=== PATIENT | female | born 1965 | race American Indian/Alaskan Native ===

== ENCOUNTER 2016-08-17 07:24 | Emergency (ER) | payer SELFPAY ==
[2016-08-17 07:57] VITALS: BP 134/90
[2016-08-17 08:29] LABS: Eosinophils % (Auto) 1.4 % (0.0-4.3); Hematocrit 43.1 % (30.3-42.9); Hemoglobin 14.4 gm/dl (10.1-14.3); Mean Corpuscular HGB Conc 34 % (30-34); Mean Corpuscular Hemoglobin 30 pg (28-32); Mean Corpuscular Volume 88 fl (79-97); Platelet Count 301 K/mm3 (140-440); Red Cell Distribution Width 13.3 % (13.2-15.2); White Blood Count 7.2 K/mm3 (4.5-11.0)
[2016-08-17 09:13] LABS: Alanine Aminotransferase 9 units/L (7-56); Albumin 3.8 g/dL (3.9-5); Alkaline Phosphatase 169 units/L (35-129); Anion Gap 15 mmol/L; BUN/Creatinine Ratio 15.71; Bilirubin,Total 0.5 mg/dL (0.1-1.2); Blood Urea Nitrogen 11 mg/dL (7-17); Calcium 9.8 mg/dL (8.4-10.2); Carbon Dioxide 27 mmol/L (22-30); Chloride 96.1 mmol/L (98-107); Glucose 321 mg/dL (65-100); Lipase 34 units/L (13-60); Potassium 4.3 mmol/L (3.6-5.0); Sodium 134 mmol/L (137-145); Total Protein 7.8 g/dL (6.3-8.2)
[2016-08-17 10:43] LABS: Bilirubin,Urine NEG (Negative); Blood,Urine NEG (Negative); Ketones,Urine NEG (Negative); Leukocyte Esterase,Urine NEG (Negative); Nitrite,Urine NEG (Negative); Protein,Urine <15 mg/dL mg/dL (Negative); Urobilinogen,Urine < 2.0 mg/dL (<2.0)
== END 2016-08-17 21:01 | disposition left against medical advice (07) ==
LOC: ED 07:24
DX: R10.2 Pelvic and perineal pain (principal); Z53.21 Procedure and treatment not carried out due to patient leaving prior to being seen by health care provider
CPT/HCPCS: 36415; 80053; 81001; 83690; 85025

== ENCOUNTER 2018-09-13 12:32 | Emergency (ER) | payer SELFPAY ==
[2018-09-13 12:47] VITALS: BP 158/93
--- NOTE | 2018-09-13 12:47 | Emergency Department Report ---
Blank Doc - Documentation Documentation: Was moving cases of water and then back started hurting 2 days later.
--- NOTE | 2018-09-13 13:11 | Emergency Department Report ---
HPI - General Chief Complaint: Back Pain/Injury Time Seen by Provider: 09/13/18 12:45 - HPI HPI: 52-year-old -[place] female presents to the emergency department with complaint of some left-sided mid back pain has been going on for the past 5 or 6 days since the patient lifted some heavy crates of water and soda while at work. She has not taken anything for her symptoms prior to presentation. She denies any problems with bowel or bladder, numbness or paresthesias, or any neurological deficits. She has a past medical history of hypertension and diabetes. She does not have a primary care physician. No recent travel or sick contacts at home. ED Past Medical Hx - Past Medical History Previous Medical History?: Yes Hx Hypertension: Yes Hx Diabetes: Yes Hx Arthritis: Yes Additional medical history: diverticulosis, high cholesterol. bone spurs - Surgical History Past Surgical History?: Yes Additional Surgical History: c section x4, hysterectomy. bilateral carpal tunnel - Social History Smoking Status: Never Smoker Substance Use Type: None - Medications Home Medications: Home Medications Medication Instructions Recorded Confirmed Last Taken Type oxyCODONE /ACETAMINOPHEN [Percocet 1 tab PO Q6HR PRN #15 tablet 06/30/13 Unknown Rx 5/325 mg] Naproxen [Naprosyn TAB] 500 mg PO BID #14 tablet 01/13/14 Unknown Rx HYDROcodone/APAP 5-325 [[place] 1 each PO Q6HR PRN #20 tablet 03/19/17 Unknown Rx 5/325] Ondansetron [Zofran Odt] 4 mg PO Q8HR PRN #20 tab.rapdis 03/19/17 Unknown Rx Acetaminophen/Codeine [Tylenol 1 tab PO Q6H PRN #12 tab 04/30/18 Unknown Rx /Codeine # 3 tab] Cyclobenzaprine [Flexeril] 10 mg PO TID PRN #12 tablet 09/13/18 Unknown Rx Ibuprofen [Motrin 800 MG tab] 800 mg PO Q8HR PRN #20 tablet 09/13/18 Unknown Rx ED Review of Systems ROS: Stated complaint: BACK PAIN Other details as noted in HPI Comment: All other systems reviewed and negative Constitutional: denies: chills, fever Eyes: denies: eye pain, vision change ENT: denies: ear pain, throat pain Respiratory: denies: cough, shortness of breath Cardiovascular: denies: chest pain, palpitations Gastrointestinal: denies: abdominal pain, vomiting Genitourinary: denies: dysuria, discharge Musculoskeletal: back pain. denies: arthralgia Skin: denies: rash, lesions Neurological: denies: headache, weakness Physical Exam - Physical Exam Vital Signs: Vital Signs 09/13/18 12:45 Temperature 98.1 F Pulse Rate 71 Respiratory 16 Rate Blood Pressure 158/93 [Left] O2 Sat by Pulse 98 Oximetry Physical Exam: GENERAL: The patient is well-developed well-nourished. HENT: Normocephalic. Atraumatic. Patient has moist mucous membranes. EYES: Extraocular motions are intact. NECK: Supple. Trachea is midline. CHEST/LUNGS: Clear to auscultation. There is no respiratory distress noted. HEART/CARDIOVASCULAR: Regular. There is no tachycardia. There is no murmur. ABDOMEN: There is no abdominal distention. SKIN: Skin is warm and dry. NEURO: The patient is awake, alert, and oriented. The patient is cooperative. The patient has no focal neurologic deficits. The patient has normal speech. MUSCULOSKELETAL: There is no tenderness or deformity. There is no limitation range of motion. There is no evidence of acute injury. BACK: No midline thoracic or lumbar tenderness to palpation, step-off or deformity. There is some reproducible left lateral lower thoracic tenderness to palpation. ED Course Vital Signs 09/13/18 12:45 Temperature 98.1 F Pulse Rate 71 Respiratory 16 Rate Blood Pressure 158/93 [Left] O2 Sat by Pulse 98 Oximetry ED Medical Decision Making - Medical Decision Making The patient has been dealing with 5 or 6 days of some left mid lateral back pain after lifting some heavy objects at work. She has no problems with bowel or bladder, numbness or paresthesias or any neurological deficits. There is no midline thoracic or lumbar tenderness to palpation, step-off or deformity. For these reasons, I did not feel that any imaging of the spine was necessary at this time. The patient was seen ambulatory in the emergency department and both appears and feels stable. She'll be discharged home with anti-inflammatories and a prescription for a muscle relaxer. She has been given referrals for both primary care and orthopedist. She will return to the ER with any worsening of her symptoms or any acute distress. - Differential Diagnosis muscle strain, sprain, muscle spasm, disc disease Critical Care Time: No Critical care attestation.: If time is entered above; I have spent that time in minutes in the direct care of this critically ill patient, excluding procedure time. ED Disposition Clinical Impression: Back pain Qualifiers: Back pain location: thoracic back pain Chronicity: acute Back pain laterality: left Qualified Code(s): M54.6 - Pain in thoracic spine Disposition: - TO HOME OR SELFCARE Is pt being admited?: No Condition: Stable Instructions: Back Pain (ED) Additional Instructions: Please follow up with a primary care physician in the next few days. I am also giving him a referral for a local orthopedist, Dr. Sarkar. Return to the emergency Department with any worsening of your symptoms or any acute distress. You have been prescribed a medication that is sedating and therefore should not be taken prior to driving, working, and responsible for children and in no way should be mixed with alcohol of any quantity. Prescriptions: Cyclobenzaprine [Flexeril] 10 mg PO TID PRN #12 tablet PRN Reason: Muscle Spasm Ibuprofen [Motrin 800 MG tab] 800 mg PO Q8HR PRN #20 tablet PRN Reason: Pain Referrals: SAJI SARKAR MD [Staff Physician] - 2-3 Days LYN ZAVALA MD [Staff Physician] - 2-3 Days [facility] [Outside] - 2-3 Days Time of Disposition: 13:11
== END 2018-09-13 13:37 | disposition home or self-care (01) ==
LOC: ED 12:32
DX: M54.6 Pain in thoracic spine (principal); I10 Essential (primary) hypertension; E11.9 Type 2 diabetes mellitus without complications; M19.90 Unspecified osteoarthritis, unspecified site; E78.00 Pure hypercholesterolemia, unspecified; Z90.710 Acquired absence of both cervix and uterus; Z79.899 Other long term (current) drug therapy
CPT/HCPCS: 99282

== ENCOUNTER 2018-12-26 14:42 | Emergency (ER) | payer OTHER ==
--- NOTE | 2018-12-26 15:11 | Event Note ---
ED Screening Note ED Screening Note: cc r ankle pain after customer dropped ax on her foot on Sat ambulatory pmh dm htn diverticulosis gerd cardiomegaly hpld This initial assessment/diagnostic orders/clinical plan/treatment(s) is/are subject to change based on patients health status, clinical progression and re- assessment by fellow clinical providers in the ED. Further treatment and workup at subsequent clinical providers discretion. Patient/guardian urged not to elope from the ED as their condition may be serious if not clinically assessed and managed. Initial orders include: xray
[2018-12-26 15:12] VITALS: BP 145/89
[2018-12-26] MEDS ORDERED: IBUPROFEN PO ONE (15:51)
--- NOTE | 2018-12-26 15:51 | Emergency Department Report ---
ED Lower Extremity HPI - General Chief Complaint: Extremity Injury, Lower Stated Complaint: RT LEG WORK INJURY/PAIN Time Seen by Provider: 12/26/18 15:09 Source: patient Mode of arrival: Ambulatory Limitations: No Limitations - History of Present Illness Initial Comments: Mrs. Villanueva is a very pleasant 53-year-old female who presents with injury to her right leg ankle. On Saturday 6 days prior, a customer dropped a heavy ax on her right lower leg just above her ankle. Swelling has improved. How she has persistent pain in spite BC powder. She has intermittent numbness toward her toes. 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 She's been able to continue to work. However she stands for a prolonged period of time at work. Past medical history includes diabetes mellitus, hypertension, diverticulosis, GERD, dysplipidemia MD Complaint: leg injury -: Sudden, days(s) (6) Injury: Leg: Right Type of Injury: blunt Place: work Severity: mild Improves With: rest Worsens With: palpation Context: direct blow Associated Symptoms: numbness Treatments Prior to Arrival: other (BC powder) - Related Data Previous Rx's Medication Instructions Recorded Last Taken Type oxyCODONE /ACETAMINOPHEN [Percocet 1 tab PO Q6HR PRN #15 tablet 06/30/13 Unknown Rx 5/325 mg] Naproxen [Naprosyn TAB] 500 mg PO BID #14 tablet 01/13/14 Unknown Rx HYDROcodone/APAP 5-325 [[place] 1 each PO Q6HR PRN #20 tablet 03/19/17 Unknown Rx 5/325] Ondansetron [Zofran Odt] 4 mg PO Q8HR PRN #20 tab.rapdis 03/19/17 Unknown Rx Acetaminophen/Codeine [Tylenol 1 tab PO Q6H PRN #12 tab 04/30/18 Unknown Rx /Codeine # 3 tab] Cyclobenzaprine [Flexeril] 10 mg PO TID PRN #12 tablet 09/13/18 Unknown Rx Ibuprofen [Motrin 800 MG tab] 800 mg PO Q8HR PRN #20 tablet 09/13/18 Unknown Rx Ibuprofen [Motrin 800 MG tab] 800 mg PO TID 4 Days #12 tablet 12/26/18 Unknown Rx Allergies Allergy/AdvReac Type Severity Reaction Status Date / Time No Known Allergies Allergy Verified 02/18/14 15:55 ED Review of Systems ROS: Stated complaint: RT LEG WORK INJURY/PAIN Other details as noted in HPI Constitutional: denies: fever, malaise Skin: denies: rash, lesions Neurological: denies: numbness, paresthesias ED Past Medical Hx - Past Medical History Previous Medical History?: Yes Hx Hypertension: Yes Hx Diabetes: Yes Hx Arthritis: Yes Additional medical history: diverticulosis, high cholesterol. bone spurs - Surgical History Past Surgical History?: Yes Additional Surgical History: c section x4, hysterectomy. bilateral carpal tunnel - Social History Smoking Status: Never Smoker Substance Use Type: None - Medications Home Medications: Home Medications Medication Instructions Recorded Confirmed Last Taken Type oxyCODONE /ACETAMINOPHEN [Percocet 1 tab PO Q6HR PRN #15 tablet 06/30/13 Unknown Rx 5/325 mg] Naproxen [Naprosyn TAB] 500 mg PO BID #14 tablet 01/13/14 Unknown Rx HYDROcodone/APAP 5-325 [[place] 1 each PO Q6HR PRN #20 tablet 03/19/17 Unknown Rx 5/325] Ondansetron [Zofran Odt] 4 mg PO Q8HR PRN #20 tab.rapdis 03/19/17 Unknown Rx Acetaminophen/Codeine [Tylenol 1 tab PO Q6H PRN #12 tab 04/30/18 Unknown Rx /Codeine # 3 tab] Cyclobenzaprine [Flexeril] 10 mg PO TID PRN #12 tablet 09/13/18 Unknown Rx Ibuprofen [Motrin 800 MG tab] 800 mg PO Q8HR PRN #20 tablet 09/13/18 Unknown Rx Ibuprofen [Motrin 800 MG tab] 800 mg PO TID 4 Days #12 tablet 12/26/18 Unknown Rx ED Physical Exam - General Limitations: No Limitations General appearance: alert, in no apparent distress - Head Head exam: Present: atraumatic, normocephalic - Eye Eye exam: Absent: scleral icterus, conjunctival injection - ENT ENT exam: Present: mucous membranes moist - Neck Neck exam: Present: normal inspection, full ROM - Expanded Lower Extremity Exam Right Lower Leg exam: Present: normal inspection, full ROM, tenderness. Absent: swelling, abrasion, laceration, deformity, crepidus, dislocation, erythema, palpable cord, Manan's sign Ankle exam: Present: normal inspection, full ROM, tenderness. Absent: swelling, laceration, ecchymosis, deformity, dislocation, erythema ED Course Vital Signs 12/26/18 15:10 Temperature 97.8 F Pulse Rate 82 Respiratory 18 Rate Blood Pressure 145/89 O2 Sat by Pulse 99 Oximetry ED Lower Extremity MDM - Radiology Data Radiology results: image reviewed right ankle radiographs: No acute process according to my interpretation, no fracture no soft tissue swelling no subluxation - Medical Decision Making Right leg contusion: Camilo wrap applied to left ankle lower leg by my colleague under my supervision. Extremity neurologically intact after application. Prescribed ibuprofen and referred to orthopedic surgeon. Critical care attestation.: If time is entered above; I have spent that time in minutes in the direct care of this critically ill patient, excluding procedure time. ED Disposition Clinical Impression: Contusion of right leg Disposition: DC-01 TO HOME OR SELFCARE Is pt being admited?: No Does the pt Need Aspirin: No Condition: Stable Instructions: Contusion in Adults (ED) Prescriptions: Ibuprofen [Motrin 800 MG tab] 800 mg PO TID 4 Days #12 tablet Referrals: SAJI EDGE MD [Staff Physician] - 3-5 Days
--- NOTE | 2018-12-26 15:54 | XRay Report ---
RIGHT ANKLE 3 VIEWS INDICATION / CLINICAL INFORMATION: ankle foot pain. COMPARISON: None available. FINDINGS: No fracture, dislocation or right ankle effusion is present. Nonpostinflammatory calcaneal enthesophy pauly are seen at the attachment of the Achilles and plantar tendon aponeurosis. There is mild heteroto pic ossification within the distal Achilles and plantar tendon aponeurosis likely from remote partial tears. Signer Name: Oleg Gipson MD Signed: 12/26/2018 3:49 PM Workstation Name: [id number]
== END 2018-12-26 16:18 | disposition home or self-care (01) ==
LOC: ED 14:42
DX: S80.11XA Contusion of right lower leg, initial encounter (principal); I10 Essential (primary) hypertension; E11.9 Type 2 diabetes mellitus without complications; M19.90 Unspecified osteoarthritis, unspecified site; E78.00 Pure hypercholesterolemia, unspecified; Z90.710 Acquired absence of both cervix and uterus; Z98.890 Other specified postprocedural states; Z79.899 Other long term (current) drug therapy; W20.8XXA Other cause of strike by thrown, projected or falling object, initial encounter; Y93.89 Activity, other specified; Y92.512 Supermarket, store or market as the place of occurrence of the external cause; Y99.0 Civilian activity done for income or pay

== ENCOUNTER 2019-04-22 12:34 | Emergency (ER) | payer SELFPAY ==
[2019-04-22] MEDS ORDERED: dexAMETHasone 4 MG/ML VIAL IM ONE (13:33)
--- NOTE | 2019-04-22 13:33 | Emergency Department Report ---
ED Fall HPI - General Chief Complaint: Extremity Injury, Lower Stated Complaint: LT LEG/RT SIDE INJURY Time Seen by Provider: 04/22/19 13:20 Source: patient Mode of arrival: Ambulatory - History of Present Illness Initial Comments: 53 YO AA FEMALE TRIPPED OVER [employer] CHAIR AT WORK TODAY AND FELL. 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 Witnessed: yes, by family Place Fall Occurred: work Loss of Consciousness: none Prolonged Down Time?: no Symptoms Prior to Fall: none Severity: mild Context: tripped/slipped Associated Symptoms: denies - Related Data Previous Rx's Medication Instructions Recorded Last Taken Type Acetaminophen [Acetaminophen 8 650 mg PO Q8H PRN #25 tablet.er 04/22/19 Unknown Rx Hour] Cyclobenzaprine [Flexeril] 10 mg PO TID PRN #10 tablet 04/22/19 Unknown Rx Allergies Allergy/AdvReac Type Severity Reaction Status Date / Time No Known Allergies Allergy Verified 06/30/13 15:55 ED Review of Systems ROS: Stated complaint: LT LEG/RT SIDE INJURY Other details as noted in HPI Comment: All other systems reviewed and negative ED Past Medical Hx - Past Medical History Previous Medical History?: Yes Hx Hypertension: Yes Hx Diabetes: Yes Hx Arthritis: Yes Additional medical history: diverticulosis, high cholesterol. bone spurs - Surgical History Past Surgical History?: Yes Additional Surgical History: c section x4, hysterectomy. bilateral carpal tunnel - Family History Family history: no significant - Social History Smoking Status: Never Smoker Substance Use Type: None - Medications Home Medications: Home Medications Medication Instructions Recorded Confirmed Last Taken Type Acetaminophen [Acetaminophen 8 650 mg PO Q8H PRN #25 tablet.er 04/22/19 Unknown Rx Hour] Cyclobenzaprine [Flexeril] 10 mg PO TID PRN #10 tablet 04/22/19 Unknown Rx ED Physical Exam - General Limitations: No Limitations General appearance: alert, in no apparent distress - Head Head exam: Present: atraumatic, normocephalic - Eye Eye exam: Present: normal appearance - ENT ENT exam: Present: mucous membranes moist - Neck Neck exam: Present: normal inspection - Respiratory Respiratory exam: Present: normal lung sounds bilaterally. Absent: respiratory distress - Cardiovascular Cardiovascular Exam: Present: regular rate, normal rhythm. Absent: systolic murmur, diastolic murmur, rubs, gallop - GI/Abdominal GI/Abdominal exam: Present: soft, normal bowel sounds - Extremities Exam Extremities exam: Present: normal inspection - Back Exam Back exam: Present: normal inspection - Neurological Exam Neurological exam: Present: alert, oriented X3 - Psychiatric Psychiatric exam: Present: normal affect, normal mood - Skin Skin exam: Present: warm, dry, intact, normal color, other (ABRASION LEFT LOWER DAVIS). Absent: rash ED Course Vital Signs 04/22/19 13:10 Temperature 97.7 F Pulse Rate 71 Respiratory 18 Rate Blood Pressure 173/75 O2 Sat by Pulse 99 Oximetry ED Medical Decision Making - Medical Decision Making NO IMAGING NEEDED OJI ABRASION LLE LANDED ON R SIDE AMBULATORY--PROVIDER AMBULATED PT NEURO INTACT MEDICATED IN ER DC HOME WITH ORTHO FOLLOW UP Vital Signs 04/22/19 13:10 Temperature 97.7 F Pulse Rate 71 Respiratory 18 Rate Blood Pressure 173/75 O2 Sat by Pulse 99 Oximetry - Differential Diagnosis GLF MECHANICAL SOFT TISSUE Critical care attestation.: If time is entered above; I have spent that time in minutes in the direct care of this critically ill patient, excluding procedure time. ED Disposition Clinical Impression: Abrasion, Fall, Contusion Disposition: DC-01 TO HOME OR SELFCARE Is pt being admited?: No Does the pt Need Aspirin: No Condition: Stable Instructions: Contusion in Adults (ED) Additional Instructions: WARM COMPRESSES AND BATHS MEDS ORDERED FOLLOW UP WITH DR EDGE SHOULD PAIN PERSIST Prescriptions: Acetaminophen [Acetaminophen 8 Hour] 650 mg PO Q8H PRN #25 tablet.er PRN Reason: Pain , Severe (7-10) Cyclobenzaprine [Flexeril] 10 mg PO TID PRN #10 tablet PRN Reason: Muscle Spasm Referrals: SAJI EDGE MD [Staff Physician] - 3-5 Days Time of Disposition: 13:38
[2019-04-22 13:47] VITALS: BP 170/80
== END 2019-04-22 13:59 | disposition home or self-care (01) ==
LOC: ED 12:34
DX: S80.12XA Contusion of left lower leg, initial encounter (principal); I10 Essential (primary) hypertension; E11.9 Type 2 diabetes mellitus without complications; M19.90 Unspecified osteoarthritis, unspecified site; E78.00 Pure hypercholesterolemia, unspecified; Z79.899 Other long term (current) drug therapy; W01.0XXA Fall on same level from slipping, tripping and stumbling without subsequent striking against object, initial encounter; Y93.89 Activity, other specified; Y92.89 Other specified places as the place of occurrence of the external cause; Y99.0 Civilian activity done for income or pay
CPT/HCPCS: 96372; 99282; J1100